=== PATIENT | male | born 1960 | race Caucasian/White ===

== ENCOUNTER 2016-08-31 10:11 | Day surgery (SDC) | payer OTHER ==
[2016-08-31] MEDS ORDERED: LACTATED RINGERS 1,000 ML IV ONE ×2 (10:35→12:19)
[2016-08-31] MEDS ORDERED: MIDAZOLAM 2 MG/2 ML VIAL IVP ONE (11:19)
[2016-08-31] MEDS ORDERED: fentaNYL 100 MCG/2 ML VIAL IVP ONE (11:19)
--- NOTE | 2016-08-31 11:45 | SURGERY HX AND PHYSICAL(T) ---
Surgical History & Physical - PMH/PSH/Social Hx Does the pt have a hx of MRSA?: No Eyes, Ears, Nose, Throat: None Cardiovascular: None Respiratory: None Skin: Rosacea Endocrine/Autoimmune: None Gastrointestinal: None Urinary: None Musculoskeletal: None Psychiatric: None Substance Use and Type: Marijuana - Home Meds and Allergies Home Medications: No Known Home Medications [No Known Home Medications] 08/30/16 Allergies/Adverse Reactions: Allergies Allergy/AdvReac Type Severity Reaction Status Date / Time No Known Drug Allergies Allergy Verified 08/30/16 14:52 - Vital Signs Temperature: 36.4 C Respiratory Rate: 16 O2 Saturation: 100 Weight (kg): 78.1 kg Height: 1.78 m - Patient Review Patient Review: Problems were reviewed with the patient during this visit. Medications were reviewed with the patient during this visit. Allergies were reviewed this patient during this visit. Pertinent Tests Reviewed: All pertitent test for this patient were reviewed. - Assessment & Plan Assessment and Plan: This patient was initially sent to my office on July 29, 2016 by Suzette Arguelles PA-C as his brother had 17 tubular adenomas and his sister had of colon cancer at the age of 56. The patient described/s his bowel movements as regular and normal. He denies nausea, vomiting, constipation, diarrhea, melena, hematochezia, hematemesis, abdominal pain, unexplained weight loss, or change in the color, character or caliber of his stool. The patient denies any previous colon evaluation including barium enema, sigmoidoscopy or colonoscopy. Because 30 days were allowed to elapse between the office visit and the procedure this additional H&P is mandated. Allergies: None. Current Meds: SUPREP BOWEL PREP SOLN (NA SULFATE-K SULFATE-MG SULF) Take as directed Past Medical History: Dyslipidemia Family history of colon polyps Family History Summary: Sister (full) - Has Family History of Other Medical Problems - from colon cancer - Entered On: 07/29/2016 General Comments - FH: Father-CABG age 67, smoked early in his life Mother-kidney stones, colostomy for unknown reason. 2 brothers and 7 sisters, none with known heart disease Risk Factors: Smoked Tobacco Use: Former smoker Drug use: no Alcohol use: yes - drinks per day: 4+ Exercise: no Review of Systems CONSTITUTIONAL: No weight loss, fever, chills, weakness or fatigue. HEENT: Eyes: No visual loss, blurred vision, double vision or yellow sclerae. Ears, Nose, Throat: No hearing loss, sneezing, congestion, runny nose or sore throat. SKIN: No rash or itching. CARDIOVASCULAR: No chest pain, chest pressure or chest discomfort. No palpitations or edema. RESPIRATORY: No shortness of breath, cough or sputum. GASTROINTESTINAL: No anorexia, nausea, vomiting or diarrhea. No abdominal pain or blood. GENITOURINARY: No dysuria. No impotence. NEUROLOGICAL: No headache, dizziness, syncope, paralysis, ataxia, numbness or tingling in the extremities. No change in bowel or bladder control. MUSCULOSKELETAL: No muscle, back pain, joint pain or stiffness. HEMATOLOGIC: No anemia, bleeding or bruising. LYMPHATICS: No enlarged nodes. No history of splenectomy. PSYCHIATRIC: No history of depression or anxiety. ENDOCRINOLOGIC: No reports of sweating, cold or heat intolerance. No polyuria or polydipsia. ALLERGIES: No history of asthma, hives, eczema or rhinitis. Physical Exam General: 55-year old healthy-appearing male, appears stated age, well developed , well nourished, evaluated in Bed 3 of [facility] HEENT: Normocephalic, atraumatic, extraocular movement intact, mucous membranes pink and moist, sclera anicteric and not injected, mays hair bautista and mustache Neck: Supple without pain on palpation, mass or bruit Cardiac: Regular rate and rhythm without rub, gallop, or murmur Chest: Clear to auscultation bilaterally Abdomen: Soft, nontender, normoactive bowel sounds, no hepatomegaly, no splenomegaly Genitourinary: Deferred Rectal: Deferred until colonoscopy Extremities: No gross neurovascular problem, no clubbing, cyanosis or edema Gait: Not evaluated today. Psychiatric: Alert and oriented to person place and time, asks and answers questions appropriately, mood and affect appropriate Impression & Recommendations: Family history of colon polyps and family history of colon cancer Colonoscopy with possible biopsies and/or polypectomies. In the office the indications, procedure, alternatives (such as barium enema, Cologuard and even no procedure at all) and risks including but not limited to perforation requiring operative repair, bleeding with its risks, and were fully explained to him, but I did not repeat it today. In the office I carol diagrams explaining the colonic anatomy and the proposed procedure and handed it to him, but I did not repeat it today. In the office conscious sedation was discussed at length with him as were its risks including but not limited to loss of airway , aspiration, respiratory depression, and not enough relief of pain and anxiety and he indicated that he wished to have conscious sedation for his procedure. I explained that MAC anesthesia is associated with a higher incidence of colon perforation. Review of his history does/did not reveal any significant systemic disease that would contraindicate use of conscious sedation or MAC anesthesia. All questions were fully answered. Verbal and written consent was obtained in July. The patient in preparation for his colonoscopy has been NPO and his colon has been mechanically prepped. 20 minutes of [id number] time spent with the patient and his the majority of which was spent in discussion
[2016-08-31 12:24] VITALS: BP 110/78
--- NOTE | 2016-08-31 12:33 | SURGERY HX AND PHYSICAL(T) ---
Surgical History & Physical - PMH/PSH/Social Hx Does the pt have a hx of MRSA?: No Eyes, Ears, Nose, Throat: None Cardiovascular: None Respiratory: None Skin: Rosacea Endocrine/Autoimmune: None Gastrointestinal: None Urinary: None Musculoskeletal: None Psychiatric: None Substance Use and Type: Marijuana - Home Meds and Allergies Home Medications: No Known Home Medications [No Known Home Medications] 08/30/16 Allergies/Adverse Reactions: Allergies Allergy/AdvReac Type Severity Reaction Status Date / Time No Known Drug Allergies Allergy Verified 08/30/16 14:52 - Vital Signs Temperature: 36.4 C Respiratory Rate: 16 O2 Saturation: 100 Weight (kg): 78.1 kg Height: 1.78 m - Patient Review Patient Review: Problems were reviewed with the patient during this visit. Medications were reviewed with the patient during this visit. Allergies were reviewed this patient during this visit. Pertinent Tests Reviewed: All pertitent test for this patient were reviewed.
== END 2016-08-31 10:12 | disposition home or self-care (01) ==
LOC: SDS 10:11
PROVIDERS: ATTEND Surgery
PROC: 0DBN8ZX Excision of Sigmoid Colon, Via Natural or Artificial Opening Endoscopic, Diagnostic (ICD-10-PCS; principal; 2016-08-31 11:30)
DX: Z80.0 Family history of malignant neoplasm of digestive organs (principal); Z83.71 Family history of colonic polyps; K57.30 Diverticulosis of large intestine without perforation or abscess without bleeding; D12.5 Benign neoplasm of sigmoid colon; K64.8 Other hemorrhoids; Z87.891 Personal history of nicotine dependence
CPT/HCPCS: 45380; J7120; 88305